=== PATIENT | female | born 2000 | race Caucasian/White ===

== ENCOUNTER 2022-11-20 05:37 | Emergency (ER) | payer SELFPAY ==
[2022-11-20 05:50] VITALS: BP 142/82; PULSE 84; RESP 18; TEMP 98.3; BMI 23.8
[2022-11-20] MEDS ORDERED: ACETAMINOPHEN 500 MG TABLET (FP) PO ONE (07:28)
[2022-11-20] MEDS ORDERED: ACETAMINOPHEN 325 MG TABLET (FP) ONE (07:29)
[2022-11-20 09:17] LABS: BASO % 0.4 % (0-2.0); EOS % 0.4 % (0-4.5); HEMATOCRIT 37.9 % (32.4-45.2); LYMPH % 14.9 % (8-40); MCH 29.1 pg (25.7-33.7); MCHC 34.4 g/dl (32.0-36.0); MEAN CELL VOLUME 84.6 fl (80-96); MEAN PLT VOLUME 6.6 fl (7.5-11.1); MONO % 4.6 % (3.8-10.2); NEUT % 79.7 % (42.8-82.8); PLATELET COUNT 376 10^3/uL (134-434); RBC 4.47 M/mm3 (3.60-5.2); RDW 14.7 % (11.6-15.6); WHITE BLOOD COUNT 8.4 K/mm3 (4.0-10.0)
[2022-11-20 09:38] LABS: CHLORIDE 105 mmol/L (98-107); SODIUM 138 mmol/L (136-145)
[2022-11-20 11:12] LABS: ALK PHOS 105 U/L (45-117); BILIRUBIN,TOTAL 0.4 mg/dL (0.2-1); BLOOD UREA NITROGEN 9.5 mg/dL (7-18); CALCIUM 9.6 mg/dL (8.5-10.1); CO2 21 mmol/L (21-32); CREATININE 0.6 mg/dL (0.55-1.3); GLUCOSE,RANDOM 104 mg/dL (74-106); SGOT/AST 28 U/L (15-37); SGPT/ALT 54 U/L (13-61); TOT PROT 8.4 g/dl (6.4-8.2)
[2022-11-20 11:28] LABS: ANION GAP 12 MMOL/L (8-16)
== END 2022-11-20 11:15 | disposition home or self-care (01) ==
LOC: JER 05:37
DX: R07.9 Chest pain, unspecified (principal)
CPT/HCPCS: 36415; 80053; 84484; 85025; 93005; 93010; 99284-25

== ENCOUNTER 2024-01-15 23:20 | Inpatient (IN) | payer OTHER ==
[2024-01-16] MEDS: ELECTROLYTE-148 SOLN 500 ML IV ONE (00:15)
[2024-01-16] MEDS: ELECTROLYTE-148 SOLN 500 ML IV SCH (00:45)
[2024-01-16 01:31] LABS: BASO % 0.2 % (0-2.0); HEMATOCRIT 38.4 % (32.4-45.2); HEMOGLOBIN 12.8 GM/dL (10.7-15.3); LYMPH % 13.9 % (8-40); MCH 29.7 pg (25.7-33.7); MCHC 33.3 g/dl (32.0-36.0); MEAN CELL VOLUME 89.2 fl (80-96); MEAN PLT VOLUME 7.2 fl (7.5-11.1); MONO % 7.2 % (3.8-10.2); NEUT % 77.7 % (42.8-82.8); PLATELET COUNT 297 10^3/uL (134-434); RDW 17.3 % (11.6-15.6); WHITE BLOOD COUNT 10.9 K/mm3 (4.0-10.0)
[2024-01-16 01:34] LABS: CALCIUM 8.7 mg/dL (8.5-10.1)
[2024-01-16 01:35] LABS: BLOOD UREA NITROGEN 15.9 mg/dL (7-18)
[2024-01-16 01:38] LABS: CREATININE 0.6 mg/dL (0.55-1.3)
[2024-01-16 01:48] LABS: INR 0.95 (0.83-1.09)
[2024-01-16 01:51] LABS: ACTIVATED PTT 27.7 SECONDS (25.2-36.5)
[2024-01-16 02:09] VITALS: BMI 29.6
[2024-01-16] MEDS ORDERED: ELECTROLYTE-148 SOLN 1,000 ML IV SCH (03:45)
[2024-01-16] MEDS ORDERED: ELECTROLYTE-148 SOLN 500 ML IV ONE (03:51)
[2024-01-16] MEDS: CITRIC ACID/SODIUM CITRATE 30 ML UNIT-DOSE CUP PO ONE (03:52)
[2024-01-16] MEDS ORDERED: FENTANYL CITRATE/PF 50 MCG/ML VIAL ONE (04:05)
[2024-01-16] MEDS ORDERED: morphine SULFATE/PF 1 MG/2 ML (2cc Syringe - QUVA) ONE (04:05)
[2024-01-16] MEDS ORDERED: AZITHROMYCIN IVPB 500 MG/250 ML BAG IVPB ONE (04:09)
[2024-01-16] MEDS: AZITHROMYCIN IVPB 500 MG in DEXTROSE 5%-WATER - 250 ML IVPB STA (04:15)
[2024-01-16] MEDS ORDERED: OXYTOCIN 10 UNITS/ML VIAL ONE (04:57)
[2024-01-16] MEDS ORDERED: ONDANSETRON 4 MG/2 ML VIAL ONE (05:07)
[2024-01-16] MEDS ORDERED: DEXAMETHASONE SOD PHOSPHATE 4 MG/1 ML VIAL ONE (05:07)
[2024-01-16 05:49] LABS: CORD HCO3 27.6 mmHg (20-29); CORD pH 7.226 (7.14-7.44)
[2024-01-16 05:52] LABS: CORD BASE EXCESS -2.5 mmol/L (0-2); CORD pH 7.356 (7.14-7.44)
[2024-01-16] MEDS: OXYTOCIN 20 UNITS in 0.9% NS 20 UNIT/1,000 ML INFUS.BAG IV SCH (06:15)
[2024-01-16] MEDS: IBUPROFEN 800 MG/8 ML IJ IVPB PRN (19:40)
[2024-01-17] MEDS: SIMETHICONE 80 MG TAB.CHEW (FP) PO PRN (05:05)
[2024-01-17] MEDS: IBUPROFEN 600 MG TABLET (FP) PO PRN (05:05)
[2024-01-17] MEDS ORDERED: BISACODYL 10 MG SUPP.RECT RC PRN (05:39)
[2024-01-17 07:56] LABS: BASO % 0.2 % (0-2.0); EOS % 1.2 % (0-4.5); HEMATOCRIT 31.3 % (32.4-45.2); HEMOGLOBIN 10.7 GM/dL (10.7-15.3); LYMPH % 23.7 % (8-40); MCH 30.6 pg (25.7-33.7); MCHC 34.2 g/dl (32.0-36.0); MEAN CELL VOLUME 89.5 fl (80-96); MEAN PLT VOLUME 6.9 fl (7.5-11.1); MONO % 8.4 % (3.8-10.2); NEUT % 66.5 % (42.8-82.8); PLATELET COUNT 231 10^3/uL (134-434); RBC 3.49 M/mm3 (3.60-5.2); RDW 17.5 % (11.6-15.6); WHITE BLOOD COUNT 11.1 K/mm3 (4.0-10.0)
[2024-01-17] MEDS: ACETAMINOPHEN 325 MG TABLET (FP) PO PRN (10:44)
[2024-01-17] MEDS: FLU VACCINE (FLULAVAL) PF 60 MCG/0.5 ML SYRINGE 2023-2024 IM ONE (10:46)
[2024-01-17] MEDS: DIPHTH,PERTUSS(ACELL),TET 0.5 ML DISP.SYRIN IM ONE (10:47)
[2024-01-18] MEDS: oxyCODONE HCL 5 MG TABLET PO PRN (17:58)
[2024-01-18 21:23] VITALS: RESP 18
[2024-01-19 06:25] LABS: BASO % 0.3 % (0-2.0); EOS % 2.3 % (0-4.5); HEMATOCRIT 34.5 % (32.4-45.2); HEMOGLOBIN 11.3 GM/dL (10.7-15.3); LYMPH % 15.9 % (8-40); MCH 29.8 pg (25.7-33.7); MCHC 32.8 g/dl (32.0-36.0); MEAN CELL VOLUME 90.7 fl (80-96); MEAN PLT VOLUME 6.8 fl (7.5-11.1); MONO % 6.1 % (3.8-10.2); NEUT % 75.4 % (42.8-82.8); PLATELET COUNT 293 10^3/uL (134-434); RDW 17.3 % (11.6-15.6); WHITE BLOOD COUNT 9.6 K/mm3 (4.0-10.0)
[2024-01-19 11:14] VITALS: BP 112/70; PULSE 94; TEMP 98.3
== END 2024-01-19 12:30 | disposition home or self-care (01) | DRG 540 ==
LOC: JDEL 23:20 → JLDR 23:50 → J3W 01-16 08:50
PROVIDERS: ADMIT Student in an Organized Health Care Education/Training Program; ATTEND Student in an Organized Health Care Education/Training Program
PROC: 10D00Z1 Extraction of Products of Conception, Low, Open Approach (ICD-10-PCS; principal; 2024-01-16)
DX: O42.92 Full-term premature rupture of membranes, unspecified as to length of time between rupture and onset of labor (principal); O66.41 Failed attempted vaginal birth after previous cesarean delivery; O76 Abnormality in fetal heart rate and rhythm complicating labor and delivery; Z3A.38 38 weeks gestation of pregnancy; Z37.0 Single live birth
CPT/HCPCS: 36415; 36600; 80048; 82803; 85025; 85610; 85730; 86780; 86850; 86900; 86901; 88307-TC; 90686; 90715

== ENCOUNTER 2024-02-05 02:11 | Emergency (ER) | payer OTHER ==
[2024-02-05 02:19] VITALS: BP 122/80; PULSE 75; RESP 17; TEMP 98.6; BMI 30.2
[2024-02-05] MEDS ORDERED: SULFAMETHOXAZOLE/TRIMETHOPRIM 800MG/160MG D.S. TABLET ONE (04:26)
[2024-02-05] MEDS: SULFAMETHOXAZOLE/TRIMETHOPRIM 800MG/160MG D.S. TABLET PO ONE (04:29)
== END 2024-02-05 04:41 | disposition home or self-care (01) ==
LOC: JER 02:11
DX: T81.41XA Infection following a procedure, superficial incisional surgical site, initial encounter (principal); Z48.02 Encounter for removal of sutures
CPT/HCPCS: 87070; 87076; 87186; 87205; 99283-25

== ENCOUNTER 2024-02-21 06:29 | Emergency (ER) | payer OTHER ==
[2024-02-21 06:36] VITALS: BMI 31.7
[2024-02-21 08:26] LABS: BASO % 0.7 % (0-2.0); EOS % 3.9 % (0-4.5); HEMATOCRIT 37.4 % (32.4-45.2); LYMPH % 37.2 % (8-40); MCH 31.2 pg (25.7-33.7); MCHC 34.8 g/dl (32.0-36.0); MEAN CELL VOLUME 89.6 fl (80-96); MEAN PLT VOLUME 6.6 fl (7.5-11.1); MONO % 7.4 % (3.8-10.2); NEUT % 50.8 % (42.8-82.8); PLATELET COUNT 286 10^3/uL (134-434); RBC 4.17 M/mm3 (3.60-5.2); RDW 13.7 % (11.6-15.6); WHITE BLOOD COUNT 7.4 K/mm3 (4.0-10.0)
[2024-02-21 08:34] LABS: ACTIVATED PTT 29.1 SECONDS (25.2-36.5); INR 0.93 (0.83-1.09); PROTHROMBIN TIME (PATIENT) 10.5 SEC (9.7-13.0)
[2024-02-21 09:00] LABS: CALCIUM 8.3 mg/dL (8.5-10.1)
[2024-02-21 09:01] LABS: ALBUMIN 3.6 g/dl (3.4-5.0)
[2024-02-21 09:02] LABS: POTASSIUM 4.1 mmol/L (3.5-5.1)
[2024-02-21 09:04] LABS: CREATININE 0.6 mg/dL (0.55-1.3)
[2024-02-21 09:05] LABS: BILIRUBIN,TOTAL 0.2 mg/dL (0.2-1)
[2024-02-21 09:06] LABS: TOT PROT 7.4 g/dl (6.4-8.2)
[2024-02-21 09:33] VITALS: BP 129/89; PULSE 71; RESP 16; TEMP 98.5
== END 2024-02-21 09:20 | disposition home or self-care (01) ==
LOC: JER 06:29
DX: T81.31XA Disruption of external operation (surgical) wound, not elsewhere classified, initial encounter (principal); X58.XXXA Exposure to other specified factors, initial encounter
CPT/HCPCS: 36415; 80053; 85025; 85610; 85730; 86850; 86900; 86901; 87040; 99283-25

== ENCOUNTER 2024-05-02 16:54 | Emergency (ER) | payer OTHER ==
[2024-05-02 17:06] VITALS: BP 116/78; PULSE 70; RESP 18; TEMP 98.8; BMI 30.6
[2024-05-02 18:13] LABS: BASO % 0.8 % (0-2.0); EOS % 1.9 % (0-4.5); HEMATOCRIT 37.8 % (32.4-45.2); HEMOGLOBIN 13.1 GM/dL (10.7-15.3); LYMPH % 27.2 % (8-40); MCH 31.2 pg (25.7-33.7); MCHC 34.7 g/dl (32.0-36.0); MEAN CELL VOLUME 89.7 fl (80-96); MEAN PLT VOLUME 6.6 fl (7.5-11.1); MONO % 10.2 % (3.8-10.2); NEUT % 59.9 % (42.8-82.8); PLATELET COUNT 279 10^3/uL (134-434); RBC 4.21 M/mm3 (3.60-5.2); RDW 12.7 % (11.6-15.6); WHITE BLOOD COUNT 4.7 K/mm3 (4.0-10.0)
[2024-05-02 18:33] LABS: ALBUMIN 3.8 g/dl (3.4-5.0); BLOOD UREA NITROGEN 10.2 mg/dL (7-18)
[2024-05-02 18:36] LABS: CREATININE 0.7 mg/dL (0.55-1.3)
[2024-05-02 18:38] LABS: BILIRUBIN,TOTAL 0.4 mg/dL (0.2-1); TOT PROT 8.1 g/dl (6.4-8.2)
== END 2024-05-02 19:20 | disposition home or self-care (01) ==
LOC: JER 16:54
DX: K64.9 Unspecified hemorrhoids (principal); K59.00 Constipation, unspecified
CPT/HCPCS: 36415; 80053; 82272; 84703; 85025; 99283-25